=== PATIENT | female | born 1995 | race African-American/Black ===

== ENCOUNTER 2017-07-03 18:55 | Inpatient (IN) ==
[2017-07-03] MEDS ORDERED: ONDANSETRON 4 MG/2 ML VIAL IV PRN (19:20)
[2017-07-03] MEDS ORDERED: MEPERIDINE 50 MG/1 ML VIAL IV PRN (19:20)
[2017-07-03] MEDS: LACTATED RINGERS 1,000 ML IV SCH (19:30)
[2017-07-03] MEDS: AMPICILLIN INJ 2,000 MG in SODIUM CHLORIDE 0.9% 100 ML IV SCH (19:55)
[2017-07-03 19:58] LABS: Basophils % 0.3 % (0.0-0.8); Eosinophils # 0.2 10*3/uL (0.0-0.87); Eosinophils % 2.1 % (0.00-10.9); Hematocrit 34.7 VOL% (35.7-47.0); Immature Granulocytes % 0.8 %; Immature Granulocytes Absolute 0.09 #; Lymphocytes # 1.9 10*3/uL (1.4-4.0); Lymphocytes % 16.5 % (21.3-54.2); Mean Corpuscular HGB Conc 34.6 GM/DL (32-36); Mean Corpuscular Hemoglobin 30 PG (27-34); Mean Corpuscular Volume 87.4 FL (87-102); Mean Platelet Volume 12.8 FL (9.6-12.0); Monocytes % 8.7 % (1.7-12.7); Neutrophils # 8.3 10*3/uL (1.4-7.4); Neutrophils % 71.6 % (38.7-73.9); Platelet Count 157 T/CUMM (130-400); Red Blood Count 3.97 MC/CUMM (3.8-5.5); Red Cell Distribution Width 14.9 % (9.3-17.3); White Blood Count 11.6 T/CUMM (4-12)
[2017-07-03] MEDS: OXYTOCIN/LR 20 UNIT/1,000 ML BAG IV SCH (20:00)
[2017-07-03 20:35] LABS: INR 0.9; PT Patient Result 9.9 SECS; Partial Thromboplastin Time 31.5 SECS (0-40)
[2017-07-03 20:57] LABS: Albumin 2.6 G/DL (3.4-5.0); Bilirubin,Total 0.5 MG/DL (0.2-1.0); Calcium 8.9 MG/DL (8.5-10.1); Osmolality,Calculated 274.4 MOS/KG (273-304); Potassium 3.8 MMOL/L (3.5-5.1); Total Protein 6.7 G/DL (6.4-8.3)
[2017-07-04] MEDS: AMPICILLIN INJ 2,000 MG in SODIUM CHLORIDE 0.9% 100 ML IV SCH ×3 (02:09→14:15)
[2017-07-04] MEDS: LACTATED RINGERS 1,000 ML IV SCH ×3 (02:09→11:22)
[2017-07-04] MEDS: BUTORPHANOL 2 MG/ML VIAL IV PRN ×2 (09:25→12:30)
--- NOTE | 2017-07-04 13:43 | History and Physical Update ---
History and Physical Update - Dictation Physical: refer to scanned H&P - Physical Exam Mental Status: alert and oriented Heart: regular rate and rhythm Lung: clear to auscultation Abdomen: within normal limits Vitals: within normal limits (PROM late yesterday, on pitocin drip since admission.)
--- NOTE | 2017-07-04 13:47 | Progress Note ---
Assessment and Plan (1) PROM (premature rupture of membranes) Status: Acute Current Visit: Yes (2) with 38 completed weeks gestation Status: Acute Assessment and plan: Pitocin induction in progress. Current Visit: Yes Family Medicine PN Sub Interval history: This patient has been in the hospital since late yesterday on a Pitocin drip following a diagnosis of premature rupture of membranes at 38 weeks. She has begun having contractions every 2-3 minute interval and has progressed to 4 cm with 95% effacement. She remains at a 0 station without molding and without the vertex being well applied. heart tones remained within normal limits although there is an auditorily confirmed arrhythmia. Full internal monitoring has been applied. Amniotic fluid is clear. Continue to assure adequate contractions for labor this afternoon, consider delivery for failure to progress if no progress made by this evening. Exam (Progress Note) - Constitutional Vitals: Period Temp Pulse Resp BP Sys/Flanagan Pulse Ox Last 24 Hr 97.8 F-98.5 F 86-120 18-19 119-139/54-90 General appearance: no acute distress, over weight - Respiratory Respiratory exam: Present: clear to auscultation bilaterally. Absent: accessory muscle use - Cardiovascular Cardiovascular exam: Present: regular rate and rhythm - GI/Abdominal GI/Abdominal exam: Present: distended, organomegaly (uterus). Absent: guarding , tenderness - Extremities Exam Extremities exam: Present: normal inspection - Back Exam Back exam: Present: normal inspection - Neurological Exam Neurological exam: Present: alert, oriented X3 - Psychiatric Psychiatric exam: Present: normal affect, normal mood - Skin Skin exam: Present: normal color, warm, dry Results - Labs CBC & BMP: 07/03/17 19:41 07/03/17 19:41
[2017-07-04] MEDS ORDERED: CITRIC ACID/SODIUM CITRATE 30 ML UDCUP PO ONE (14:26)
[2017-07-04] MEDS ORDERED: PROMETHAZINE 25 MG/1 ML VIAL IM ONE (14:26)
[2017-07-04] MEDS ORDERED: FAMOTIDINE 20 MG/2 ML VIAL IV ONE (14:26)
[2017-07-04] MEDS ORDERED: ePHEDrine 50 MG/ML AMP IV PRN (14:26)
[2017-07-04] MEDS ORDERED: fentaNYL 2 MCG/ROPIV 0.2% EPID 150 ML EPIDURAL SCH (14:30)
[2017-07-04 16:26] LABS: Apearance,Urine CLEAR (Clear); Bilirubin,Urine Negative (Negative); Blood, Urine Negative (Negative); Glucose,Urine (UA) Negative (Negative); Ketones,Urine 20 mg/dL (Negative); Nitrite,Urine Negative (Negative); Protein,Urine Negative; Urine Color Straw (Yellow); Urine Specific Gravity 1.008 (1.001-1.035); Urine Urobilinogen < 2.0 EU/DL (0.2-1.0); WBC,Urine 2 /HPF (0-6)
[2017-07-04] MEDS: OXYTOCIN/LR 20 UNIT/1,000 ML BAG IV SCH (18:26)
[2017-07-04] MEDS ORDERED: miSOPROStol 200 MCG TABLET ONE (20:39)
[2017-07-04] MEDS ORDERED: METHYLERGONOVINE 0.2 MG/1 ML AMP ONE (20:39)
[2017-07-04] MEDS ORDERED: WITCH HAZEL PADS 100/JAR TOP PRN (21:44)
[2017-07-04] MEDS ORDERED: BISACODYL 10 MG SUPP RECTAL PRN (21:44)
[2017-07-04] MEDS ORDERED: MEASLES/MUMPS/RUBELLA VACCINE 0.5 ML VIAL SUBCUT ONE (21:44)
[2017-07-04] MEDS ORDERED: LANOLIN 50% CREAM 0.3 OZ TUBE TOP PRN (21:44)
[2017-07-04] MEDS ORDERED: ACETAMINOPHEN 325 MG TABLET PO PRN (21:44)
[2017-07-04] MEDS ORDERED: DIPH/TET/ACEL PERT BOOSTER VACCINE 0.5 ML VIAL IM ONE (21:44)
[2017-07-04] MEDS ORDERED: BENZOCAINE 20%/MENTHOL 0.5% SPRAY 56 GM CAN TOP PRN (21:44)
[2017-07-04] MEDS ORDERED: RHO(D) IMMUNE GLOBULIN 300 MCG SYRINGE IM ONE (21:44)
[2017-07-04] MEDS ORDERED: HYDROCORTISONE 2.5% RECTAL CREAM 30 GM TUBE TOP PRN (21:44)
[2017-07-04] MEDS ORDERED: oxyCODONE/ACETAMINOPHEN 5-325 MG TABLET PO PRN ×2 (21:44)
--- NOTE | 2017-07-04 21:55 | Operative Note ---
Date of procedure: 07/04/17 Pre-op diagnosis: at 38 weeks, PROM Post-op diagnosis: same Procedure: Vacuum assisted vaginal delivery, repair of second degree laceration. The patient was prepped and drapped in the dorsal lithotomy position. Expulsive efforts were encouraged until the head was at a +2 to +3 station. The MitiVac was applied to the head to assist pushing efforts. Three applications were made with no pop offs. The perineum was supported with the left hand while the delivery of the head controlled by the right hand. The naseopharynx was suctioned with a bulb syringe as soon as the head delivered. The head was directed downward and the anterior shoulder delivered. The head was lifted and the posterior shoulder delivered. The was delivered to the hips and held in place while the umbilical cord was clamped and cut. The remainder of the infant was delivered and then transferred to the warmer. Cord blood was obtained and the placenta allowed to spontaneously. The placenta was then delivered Morley-Diana maneuver. An intrauterine exam was done and pitocin administered. The cervix, vagina and perineum were examined and a second degree laceration extending along the left vaginal wall onto the perineum was noted. This was closed with a running suture of 3-0 Vicryl. Anesthesia: epidural Surgeon / Physician: Matt Street Estimated blood loss: other Specimens: none sent Condition: stable Disposition: post procedure unit Results - Labs CBC & BMP: 07/03/17 19:41 07/03/17 19:41 Discharge Plan - Discharge Medications No Action Vitamin D3/Folic Acid [Ortho D 3,775 Unit-1 mg Cap] 1 tablet PO DAILY Pnv No.95/Ferrous Fum/Folic AC [ Tablet] 1 tablet PO DAILY - Follow Up or Referral - Forms/Instructions
[2017-07-04] MEDS ORDERED: OXYTOCIN/LR 20 UNIT/1,000 ML BAG IV ONE (23:13)
[2017-07-05 06:25] LABS: Basophils % 0.2 % (0.0-0.8); Eosinophils % 0.1 % (0.00-10.9); Hematocrit 31.6 VOL% (35.7-47.0); Hemoglobin 10.7 GM/DL (12.0-16.0); Immature Granulocytes % 0.7 %; Immature Granulocytes Absolute 0.12 #; Lymphocytes # 1.1 10*3/uL (1.4-4.0); Lymphocytes % 6.5 % (21.3-54.2); Mean Corpuscular HGB Conc 33.9 GM/DL (32-36); Mean Corpuscular Hemoglobin 30 PG (27-34); Mean Corpuscular Volume 87.5 FL (87-102); Mean Platelet Volume 12.9 FL (9.6-12.0); Monocytes # 1.7 10*3/uL (0.11-0.8); Monocytes % 9.6 % (1.7-12.7); Neutrophils # 14.3 10*3/uL (1.4-7.4); Neutrophils % 82.9 % (38.7-73.9); Platelet Count 153 T/CUMM (130-400); Red Blood Count 3.61 MC/CUMM (3.8-5.5); White Blood Count 17.3 T/CUMM (4-12)
[2017-07-05 06:43] LABS: Elliptocytes Few; Giant Platelets Few; Hypochromasia 1+; Platelet Estimate Normal
--- NOTE | 2017-07-05 08:02 | Anesthesia Post-Op ---
Anesthesia Post OP - Post Ansesthetic Evaluation Patient seen in post op: Yes Resp: within normal limits CV: within normal limits Mental: within normal limits Temp: within normal limits [id number]: within normal limits Nausea and Vomiting: within normal limits Pain: within normal limits
--- NOTE | 2017-07-05 09:03 | OB/GYN Progress Note ---
BOX REPAIRER - PN: Subj Interval history: Patient is doing well she is eating ambulating and voiding She is afebrile and her vital signs are stable Her fundus is firm and contracted She has decreased lochia Assessment #1 day #1 doing well Plan continue present management with expected DC tomorrow Exam BOX REPAIRER - Constitutional Vitals: Vital Signs Temp Pulse Resp BP Pulse Ox 07/05/17 07:46 97.5 F L 112 H 20 145/71 98 07/05/17 05:00 20 07/05/17 04:00 98.1 F 108 H 20 115/65 99 07/05/17 03:00 18 07/05/17 02:30 104 H 18 142/78 99 07/05/17 01:30 108 H 20 149/86 99 07/05/17 00:30 108 H 20 128/74 99 07/05/17 00:00 98.5 F 112 H 20 131/68 99 07/04/17 23:30 98.5 F 105 H 20 136/74 07/04/17 22:00 98.0 F 18 07/04/17 20:00 98.6 F Results - Labs CBC & BMP: 07/05/17 05:57 07/03/17 19:41
[2017-07-05] MEDS: DOCUSATE SODIUM 100 MG CAPSULE PO SCH ×2 (09:20→22:01)
[2017-07-05] MEDS: IBUPROFEN 800 MG TABLET PO PRN (17:46)
[2017-07-06] MEDS: DOCUSATE SODIUM 100 MG CAPSULE PO SCH (08:32)
[2017-07-06] MEDS: IBUPROFEN 800 MG TABLET PO PRN (08:33)
[2017-07-06 08:42] VITALS: BP 139/90
--- NOTE | 2017-07-16 10:35 | Physician Query Form ---
CLICK EDIT DOCUMENT TO SELECT QUERY ANSWER --> OK --> SIGN Virginie Jensen RN Clinical Circuit Designer W) [phone] (f) [phone] [email or web address] PROVIDERS: Make your selection(s) from the choices in EACH section by typing an "x" and enter comments in the comment section. Please use your independent medical judgment in providing your response. This request does not imply that any particular answer is desired or expected. CLINICAL INDICATORS: (Providers should not edit this section) Based on documentation in the operative report of "Vacuum assisted vaginal delivery". Please clarify the underlying reason for use of vacuum. Based on the above, could you clarify the appropriate diagnosis, if significant , that supports the above abnormalities and additional evaluation, monitoring, and/or treatment rendered: ( ) Distress ( ) Maternal Exhaustion ( ) Labor Complication ( ) Attempted or Failed Delivery ( ) Other complication, please specify ( ) Clinically unable to determine COMMENTS: PLEASE ALSO DOCUMENT RESPONSE IN PROGRESS NOTES AND/OR DISCHARGE SUMMARY Use of terms such as suspected, likely, or probable (associated with a specific diagnosis that is being evaluated, monitored, or treated as if it exists) are acceptable and can be restated in the discharge summary if not ruled out. [facility]
--- NOTE | 2017-07-16 12:52 | Physician Query Form ---
CLICK EDIT DOCUMENT TO SELECT QUERY ANSWER --> OK --> SIGN Virginie Jensen RN Clinical Defect Cutter W) [phone] (f) [phone] [email or web address] PROVIDERS: Make your selection(s) from the choices in EACH section by typing an "x" and enter comments in the comment section. Please use your independent medical judgment in providing your response. This request does not imply that any particular answer is desired or expected. CLINICAL INDICATORS: (Providers should not edit this section) Based on documentation in the operative report of "Vacuum assisted vaginal delivery". Please clarify the underlying reason for use of vacuum. Based on the above, could you clarify the appropriate diagnosis, if significant , that supports the above abnormalities and additional evaluation, monitoring, and/or treatment rendered: ( ) Distress ( ) Maternal Exhaustion ( ) Labor Complication ( ) Attempted or Failed Delivery ( ) Other complication, please specify: ( ) Clinically unable to determine COMMENTS: PLEASE ALSO DOCUMENT RESPONSE IN PROGRESS NOTES AND/OR DISCHARGE SUMMARY Use of terms such as suspected, likely, or probable (associated with a specific diagnosis that is being evaluated, monitored, or treated as if it exists) are acceptable and can be restated in the discharge summary if not ruled out. [facility]
--- NOTE | 2017-07-27 12:17 | Discharge Summary ---
DATE OF ADMISSION: 07/03/2017 DATE OF DISCHARGE: 07/06/2017 ADMITTING DIAGNOSIS: AT 38 WEEKS FOR INDUCTION FOR PREMATURE RUPTURE OF MEMBRANES. DISCHARGE DIAGNOSIS: VAGINAL DELIVERY WITH VACUUM EXTRACTOR AND SECOND-DEGREE LACERATIONS. CLINICAL NARRATIVE: This patient was admitted for induction of labor, which was somewhat elongated, but ultimately delivered in a vaginal delivery. She and her baby's course were uneventful and they were both discharged on the same postoperative day.
== END 2017-07-06 11:30 | disposition home or self-care (01) | DRG 560 ==
LOC: N.LDOUT 18:55 → N.LD 18:57 → N.OB 07-04 23:30
PROVIDERS: ADMIT Obstetrics & Gynecology; ATTEND Obstetrics & Gynecology